=== PATIENT | female | born 1975 | race Caucasian/White ===

== ENCOUNTER → 2021-04-20 | Outpatient (CLI) | payer BC | LOC: COL.RAD 07:06 | DX: D25.9 Leiomyoma of uterus, unspecified (principal); N92.0 Excessive and frequent menstruation with regular cycle ==

== ENCOUNTER → 2022-09-10 | Outpatient (CLI) | payer BC | LOC: COL.VAS 13:09 | DX: I34.0 Nonrheumatic mitral (valve) insufficiency (principal); I51.7 Cardiomegaly; Z82.69 Family history of other diseases of the musculoskeletal system and connective tissue ==

== ENCOUNTER 2023-02-12 08:15 | Outpatient (RCR) | payer BC | END 2023-02-13 | disposition home or self-care (01) | LOC: WSPT | DX: Q79.60 Ehlers-Danlos syndrome, unspecified (principal) ==

== ENCOUNTER 2023-03-13 08:15 | Outpatient (RCR) | payer BC | END 2023-03-15 | disposition home or self-care (01) | LOC: WSPT | DX: Q79.60 Ehlers-Danlos syndrome, unspecified (principal) ==

== ENCOUNTER 2024-03-08 08:00 | Outpatient (RCR) | payer BC | END 2024-03-15 | LOC: WSOT | DX: Q79.60 Ehlers-Danlos syndrome, unspecified (principal) ==